=== PATIENT | female | born 1985 | race African-American/Black ===

== ENCOUNTER 2018-01-12 22:21 | Emergency (ER) | payer OTHER ==
[~2018-01-12] VITALS: Ht 157.5 cm; Wt 55.0 kg
[2018-01-12 22:29] VITALS: BP 137/84; PULSE 99; RESP 20; TEMP 98.4; O2SAT 99
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
[2018-01-13 00:45] VITALS: BP 106/61; PULSE 64; RESP 14; O2SAT 99
== END 2018-01-13 01:42 | disposition left against medical advice (07) ==
LOC: NEPE 22:21
DX: M25.522 Pain in left elbow (principal); J45.909 Unspecified asthma, uncomplicated; V49.49XA Driver injured in collision with other motor vehicles in traffic accident, initial encounter; Z72.0 Tobacco use
CPT/HCPCS: 73080; 99283